=== PATIENT | female | born 2000 | race Caucasian/White ===

== ENCOUNTER 2022-07-27 09:19 | Outpatient (CLI) | payer BC, MEDICAID ==
[~2022-07-27] VITALS: Ht 162.6 cm; Wt 104.0 kg
[2022-07-27 10:02] VITALS: BP 118/58
[2022-07-27] MEDS ORDERED: PNV-9 PO (10:07)
[2022-07-27 10:34] LABS: BILIRUBIN,URINE NEGATIVE (NEGATIVE); CLARITY,URINE CLEAR; COLOR,URINE YELLOW; GLUCOSE, URINE (UA) NEGATIVE (NEGATIVE); KETONES,URINE NEGATIVE (NEGATIVE); LEUKOCYTE ESTERASE ,URINE NEGATIVE (NEGATIVE); NITRITE,URINE NEGATIVE (NEGATIVE); PROTEIN,URINE NEGATIVE (NEGATIVE)
[2022-07-27 10:43] LABS: WBC,URINE 0-2 /HPF
[2022-07-27 10:44] LABS: BACTERIA,URINE NEGATIVE /HPF; SQUAMOUS EPITHELIAL CELL,UR 0-2 /HPF
[2022-07-27 11:00] VITALS: BP 118/58
--- NOTE | 2022-07-28 07:54 | Physician Query-Final Dx ---
Clinic Account Progress/Dx Physician Query: Please give diagnosis Please include # weeks gestation Date of Service Jul 27, 2022 at 09:19 LUIS A,JulJul 28, 2022 07:54
== END 2022-07-27 11:05 | disposition home or self-care (01) ==
LOC: LDRP 09:19 → WSo 09:19
PROVIDERS: ATTEND Family Medicine
DX: O26.893 Other specified pregnancy related conditions, third trimester (principal); R10.9 Unspecified abdominal pain; Z3A.36 36 weeks gestation of pregnancy
CPT/HCPCS: 81000; G0463; 99213

== ENCOUNTER 2022-08-25 20:35 | Inpatient (IN) | payer BC, MEDICAID ==
[~2022-08-25] VITALS: Ht 165 cm; Wt 108.4 kg
[~2022-08-25 20:35] MED LIST: PNV-9 PO
[2022-08-25] MEDS ORDERED: LACTATED RINGERS 1,000 ML IV SCH (21:15)
[2022-08-25] MEDS ORDERED: MINERAL OIL 30 ML UDC TOP PRN (21:15)
[2022-08-25] MEDS ORDERED: D5 LR IV SOLUTION 1,000 ML IV ONE (21:21)
[2022-08-25] MEDS: D5 LR IV SOLUTION 1,000 ML IV SCH (21:28)
[2022-08-25 21:32] LABS: BILIRUBIN,URINE NEGATIVE (NEGATIVE); CLARITY,URINE CLEAR; COLOR,URINE YELLOW; GLUCOSE, URINE (UA) NEGATIVE (NEGATIVE); KETONES,URINE NEGATIVE (NEGATIVE); LEUKOCYTE ESTERASE ,URINE NEGATIVE (NEGATIVE); NITRITE,URINE NEGATIVE (NEGATIVE); PH,URINE 6.5 (5-9); PROTEIN,URINE NEGATIVE (NEGATIVE)
[2022-08-25 21:33] LABS: BASOPHILS % (AUTO) 0 % (0-10); EOSINOPHILS # (AUTO) 0.2 10^3/uL (0.0-0.3); EOSINOPHILS % (AUTO) 2 % (0-10); HEMATOCRIT 36 % (35-52); HEMOGLOBIN 11.7 g/dL (11.5-16.0); LYMPHOCYTES # (AUTO) 1.7 10^3/uL (1.0-4.0); LYMPHOCYTES % (AUTO) 16 % (12-44); MEAN CORPUSCULAR HEMOGLOBIN 27 pg (25-34); MEAN CORPUSCULAR HGB CONC 33 g/dL (32-36); MEAN CORPUSCULAR VOLUME 82 fL (80-99); MEAN PLATELET VOLUME 9.9 fL (9.0-12.2); MONOCYTES # (AUTO) 0.6 10^3/uL (0.0-1.0); MONOCYTES % (AUTO) 6 % (0-12); NEUTROPHILS # (AUTO) 8.2 10^3/uL (1.8-7.8); NEUTROPHILS % (AUTO) 76 % (42-75); PLATELET COUNT 277 10^3/uL (130-400); WHITE BLOOD COUNT 10.8 10^3/uL (4.3-11.0)
[2022-08-25 21:43] VITALS: BP 125/75
[2022-08-25 21:47] LABS: BACTERIA,URINE FEW /HPF; RBC,URINE 0-2 /HPF; SQUAMOUS EPITHELIAL CELL,UR 25-50 /HPF
[2022-08-25] MEDS ORDERED: CATHETER FLUSH 10 ML SYR IV SCH (22:00)
[2022-08-25 22:34] VITALS: BP 120/67
[2022-08-26] VITALS (67 sets, daily range): BP systolic 111–150; BP diastolic 51–97
[2022-08-26] MEDS: D5 LR IV SOLUTION 1,000 ML IV SCH ×2 (01:50→14:53)
--- NOTE | 2022-08-26 06:49 | History & Physical-OB ---
OB - Chief Complaint & HPI Date/Time Date of Admission: Date of Admission: Aug 25, 2022 at 20:35 Date seen by a Provider: Aug 26, 2022 Time Seen by a Provider: 06:30 Chief Complaint/History OB-Reason for Admission/Chief: Induction of Labor Hx : 1 Hx Para: 0 Expected Date of Delivery: Aug 19, 2022 Gestational Age in Weeks: 40 Gestational Age in Days: 6 Indication for induction: post dates Admission Nurse Assessment Rev: Yes History of Labs GBS negative Allergies and Home Medications Allergies Coded Allergies: No Known Drug Allergies (Unverified , 07/27/22) Patient Home Medication List Home Medication List Reviewed: Yes Pnv 119/Iron Fum/Folic Acid ( 19 Tablet) 29 Mg Iron-1 Mg Tablet, 1 EACH PO DAILY, (Reported) Entered as Reported by: KATIE FLORES on 07/27/22 1007 OB - History Hx of Present Care: Yes Ultrasounds: Normal mid trimester US Obstetrical Complications: None Medical Complications: Other (elevated bp at 40w6 days) Patient Past Medical History no chronic medical problems Immunizations Influenza Vaccine Up-to-Date: No; Not Current COVID19 Vaccine Metal [employer]: [employer] OB - Admission Exam Physical Exam Vitals: Vital Signs 08/25/22 08/26/22 08/26/22 21:43 01:33 05:33 Temp 36.5 Pulse 83 Resp 18 B/P (MAP) 115/73 (87) Pulse Ox 99 O2 Delivery Non Rebreather O2 Flow Rate 15.00 HEENT: Moist Membranes Heart: Rhythm Normal Lungs: Clear Abdomen: Gravid Cervical Dilatation: 1cm Effacement: 50% Station: -3 Membranes: Intact Heart Rate: 140's Accelerations: Accelerations Present Short Term Variability: Present Residential Variability: Average (6-25) Contractions on Admission: >10 Minutes Apart Intensity: Mild Jorge Scoring Tool (Modified) Dilation (cm): 1-2cm (1) Effacement (%): 31-51% (1) Descent/Station: -3 (0) Cervix Consistency: Medium(1) Cervix Position: Middle/Mid-Position (1) Jorge Score: 4 Labs Laboratory Tests Test 08/25/22 21:18 Range/Units White Blood Count 10.8 4.3-11.0 10^3/uL Red Blood Count 4.37 3.80-5.11 10^6/uL Hemoglobin 11.7 11.5-16.0 g/dL Hematocrit 36 35-52 % Mean Corpuscular Volume 82 80-99 fL Mean Corpuscular Hemoglobin 27 25-34 pg Mean Corpuscular Hemoglobin Concent 33 32-36 g/dL Red Cell Distribution Width 14.6 H 10.0-14.5 % Platelet Count 277 130-400 10^3/uL Mean Platelet Volume 9.9 9.0-12.2 fL Immature Granulocyte % (Auto) 1 % Neutrophils (%) (Auto) 76 H 42-75 % Lymphocytes (%) (Auto) 16 12-44 % Monocytes (%) (Auto) 6 0-12 % Eosinophils (%) (Auto) 2 0-10 % Basophils (%) (Auto) 0 0-10 % Neutrophils # (Auto) 8.2 H 1.8-7.8 10^3/uL Lymphocytes # (Auto) 1.7 1.0-4.0 10^3/uL Monocytes # (Auto) 0.6 0.0-1.0 10^3/uL Eosinophils # (Auto) 0.2 0.0-0.3 10^3/uL Basophils # (Auto) 0.0 0.0-0.1 10^3/uL Immature Granulocyte # (Auto) 0.1 0.0-0.1 10^3/uL Urine Color YELLOW Urine Clarity CLEAR Urine pH 6.5 5-9 Urine Specific [place] 1.015 L 1.016-1.022 Urine Protein NEGATIVE NEGATIVE Urine Glucose (UA) NEGATIVE NEGATIVE Urine Ketones NEGATIVE NEGATIVE Urine Nitrite NEGATIVE NEGATIVE Urine Bilirubin NEGATIVE NEGATIVE Urine Urobilinogen 0.2 < = 1.0 MG/DL Urine Leukocyte Esterase NEGATIVE NEGATIVE Urine RBC (Auto) NEGATIVE NEGATIVE Urine RBC 0-2 /HPF Urine WBC 2-5 /HPF Urine Squamous Epithelial Cells 25-50 H /HPF Urine Crystals NONE /LPF Urine Bacteria FEW H /HPF Urine Casts NONE /LPF Urine Mucus MODERATE H /LPF Urine Culture Indicated NO OB - Assessment/Plan/Diagnosis Assessment Assessment: induction of labor Admission Dx 1. IUP at 40w6d gestation 2. PIH (clinic recording) but bp better inpatient Admission Status: Inpatient Order (span 2 midnights) Reason for Inpatient Admission: induction of labor Plan Plan: Induction Induction Method: per Misoprostol Protocol Other Plan -at this time patient doesn't desire epidural -will add pitocin as necessary JAYNA PERSAUD MD Aug 26, 2022 06:49
[2022-08-26] MEDS ORDERED: OXYTOCIN PRE-MIX DRIP 500 ML IV SCH ×2 (08:45→21:30)
[2022-08-26] MEDS ORDERED: BUTORPHANOL INJ 2 MG/ML (STADOL) VIAL ONE (12:38)
[2022-08-26] MEDS: BUTORPHANOL INJ 2 MG/ML (STADOL) VIAL IV PRN ×2 (12:39→14:45)
[2022-08-26] MEDS ORDERED: fentaNYL 2 mcg/ml BUPIVA 0.125 100 ML ONE (17:45)
[2022-08-26] MEDS ORDERED: fentaNYL INJ 100 MCG/2 ML AMP ONE (17:56)
[2022-08-26] MEDS ORDERED: LIDOCAINE PF 2% 5 ML (XYLOCAINE) VIAL ONE (17:56)
[2022-08-26] MEDS ORDERED: diphenhydrAMINE 50 MG/ML INJ (BENADRYL) IV PRN (19:45)
[2022-08-26] MEDS ORDERED: LACTATED RINGERS 1,000 ML IV SCH (19:45)
[2022-08-26] MEDS ORDERED: NALOXONE 0.4 MG/ML 1 ML (NARCAN) VIAL IV PRN ×3 (19:45→21:30)
[2022-08-26] MEDS ORDERED: METOCLOPRAMIDE INJ 10 MG/2 ML (REGLAN) IV PRN (19:45)
[2022-08-26] MEDS ORDERED: ONDANSETRON 4 MG/2 ML (SDV) Z0FRAN IV PRN (19:45)
[2022-08-26] MEDS ORDERED: fentaNYL 2 mcg/ml BUPIVA 0.125 100 ML EPI SCH (19:45)
[2022-08-26] MEDS ORDERED: LIDOCAINE 1% INJ 10 ML VIAL ONE (20:37)
--- NOTE | 2022-08-26 21:28 | OB Labor & Delivery Record ---
L&D History Date of Service Date of Service: Aug 26, 2022 History Expected Date of Delivery: Aug 19, 2022 Gestational Age in Weeks: 40 Hx : 1 Hx Para: 1 Complications Events: Routine care Operative Indications (Cesarea: N/A-Vaginal Delivery Intrapartal Events: None L&D Stage1 Stage One Onset of Labor - Date: Aug 26, 2022 Onset of Labor - Time: 06:37 Monitors and Tracing Monitor Mode: Internal Heart Rate: 130 Monitor Accelerations: Uniform Monitor Decelerations: None Station: 0 Fpc Variability: Average (6-10) Short Term Variability: Present Presentation: Vertex Vital Signs VS - Last 72 Hours, by Label 08/25/22 08/25/22 08/26/22 08/26/22 21:43 22:34 00:33 01:33 Temp 36.4 36.5 Pulse 84 79 80 68 Resp 18 18 18 18 B/P (MAP) 120/67 (84) 123/61 (81) 129/69 (89) Pulse Ox 99 O2 Delivery Room Air Room Air Room Air Non Rebreather O2 Flow Rate 15.00 08/26/22 08/26/22 08/26/22 08/26/22 02:33 03:34 04:32 05:33 Pulse 72 75 74 83 Resp 18 18 18 18 B/P (MAP) 125/67 (86) 133/79 (97) 113/61 (78) 115/73 (87) 08/26/22 08/26/22 08/26/22 08/26/22 06:34 07:30 07:40 08:00 Temp 36.2 Pulse 87 80 84 75 Resp 18 18 18 B/P (MAP) 131/97 (108) 117/66 (83) 129/75 (93) Pulse Ox 99 O2 Delivery Room Air Room Air Room Air 08/26/22 08/26/22 08/26/22 08/26/22 08:30 08:45 09:00 09:15 Pulse 78 74 89 86 Resp 18 18 18 18 B/P (MAP) 131/82 (98) 125/72 (89) 129/64 (85) 139/79 (99) O2 Delivery Room Air Room Air Room Air Room Air 08/26/22 08/26/22 08/26/22 08/26/22 09:30 09:45 10:00 10:15 Pulse 91 98 82 75 Resp 18 18 18 18 B/P (MAP) 130/80 (97) 131/82 (98) 131/80 (97) 139/83 (101) O2 Delivery Room Air Room Air Room Air Room Air 08/26/22 08/26/22 08/26/22 08/26/22 10:30 10:45 11:00 11:15 Temp 36.2 Pulse 75 82 71 78 Resp 18 18 18 18 B/P (MAP) 129/77 (94) 131/76 (94) 131/75 (93) 132/81 (98) O2 Delivery Room Air Room Air Room Air Room Air 08/26/22 08/26/22 08/26/22 08/26/22 11:30 11:45 12:00 12:15 Temp 36.5 Pulse 90 85 84 92 Resp 18 18 18 18 B/P (MAP) 133/81 (98) 132/82 (99) 131/64 (86) 138/92 (107) O2 Delivery Room Air Room Air Room Air Room Air 08/26/22 08/26/22 08/26/22 08/26/22 12:30 12:45 13:00 13:15 Pulse 82 67 68 75 Resp 18 18 18 18 B/P (MAP) 134/73 (93) 128/61 (83) 132/66 (88) 127/67 (87) O2 Delivery Room Air Room Air Room Air Room Air 08/26/22 08/26/22 08/26/22 08/26/22 13:30 13:45 14:00 14:15 Pulse 75 76 82 68 Resp 18 18 18 18 B/P (MAP) 125/67 (86) 133/75 (94) 138/65 (89) 140/72 (94) O2 Delivery Room Air Room Air Room Air Room Air 08/26/22 08/26/22 08/26/22 08/26/22 14:25 14:30 14:45 14:47 Temp 37.0 Pulse 83 77 Resp 18 18 B/P (MAP) 139/80 (99) 128/72 (90) O2 Delivery Room Air Room Air Room Air O2 Flow Rate 0.00 08/26/22 08/26/22 08/26/22 08/26/22 15:00 15:15 15:30 15:45 Pulse 80 70 71 73 Resp 18 18 18 18 B/P (MAP) 141/77 (98) 146/73 (97) 149/77 (101) 149/77 (101) O2 Delivery Room Air Room Air Room Air Room Air 08/26/22 08/26/22 08/26/22 08/26/22 16:00 16:15 16:30 16:45 Temp 37.1 Pulse 74 74 78 Resp 18 18 18 18 B/P (MAP) 138/65 (89) 138/65 (89) 135/70 (91) 135/75 (95) O2 Delivery Room Air Room Air Room Air Room Air 08/26/22 08/26/22 08/26/22 08/26/22 17:00 17:15 17:30 17:45 Pulse 102 102 Resp 20 20 20 B/P (MAP) 133/86 (102) 133/86 (102) O2 Delivery Room Air Room Air Room Air Room Air 08/26/22 08/26/22 08/26/22 08/26/22 18:00 18:05 18:10 18:15 Temp 36.8 Pulse 97 82 75 Resp 20 18 18 20 B/P (MAP) 130/88 (102) 133/92 (106) 131/71 (91) Pulse Ox 100 98 99 O2 Delivery Room Air Room Air Room Air Room Air 08/26/22 08/26/22 08/26/22 08/26/22 18:20 18:25 18:30 18:35 Pulse 81 85 85 90 Resp 18 18 20 18 B/P (MAP) 129/72 (91) 121/63 (82) 124/70 (88) 128/73 (91) Pulse Ox 100 100 100 100 O2 Delivery Room Air Room Air Room Air Room Air 08/26/22 08/26/22 08/26/22 08/26/22 18:40 18:45 18:50 18:55 Pulse 84 85 77 81 Resp 18 20 18 18 B/P (MAP) 127/75 (92) 121/70 (87) 127/73 (91) 132/72 (92) Pulse Ox 100 100 100 100 O2 Delivery Room Air Room Air Room Air Room Air 08/26/22 19:00 Pulse 82 Resp 18 B/P (MAP) 137/77 (97) Pulse Ox 100 O2 Delivery Room Air Signs of Distress by FHT Signs of Distress no Rupture of Membranes Spontaneous Ruture of Membrane: No Amniotic Membrane Rupture Time: 0637 Amniotic Membrane Fluid Desc.: Clear Induction/Anesthesia Epidural Cath Placement - Time: 1807 L&D Stage2 Stage Two Stage II Date: Aug 26, 2022 Stage II Time: 20:43 Monitors and Tracing Monitor Mode: Internal Heart Rate: 130 Monitor Accelerations: Uniform Monitor Decelerations: None Humane Agent Variability: Average (6-10) Short Term Variability: Present Position: Left Occiput Anterior Presentation: Vertex Signs of Distress by FHT Signs of Distress no Cord Descript/Complications Cord Vessel Description: 3 Vessels Delivery Type Infant Delivery Method: Spontaneous Vaginal Anterior Shoulder: Left Episiotomy/Perineal Laceration Laceraction(s)/Extensions: Yes Episiotomy Description: Midline Sutures Used: Vicryl Condition of Infant Delivery 1 minute Comment: 8 5 minute Comment: 9 Condition of Infant Condition of Infant: Living Exam: No Observed Abnormalities Resuscitation Resuscitation: N/A - Spontaneous Resp L&D Stage3 Stage Three Stage III Date: Aug 26, 2022 Stage III Time: 20:48 Pictocin Pitocin Administration mu/min: 18 Pitocin ml/hr: 18 Pitocin Administration Comment: pitocin increased Placenta Delivery Placenta Delivery: Spontaneous Delivery Summary Summary Estimated blood loss (mL): 400 Condition of Delivery Examined: Cervix Examined Post Hemorrhage: No Intervention Required uterine massage JAYNA PERSAUD MD Aug 26, 2022 21:28
[2022-08-26] MEDS ORDERED: TETANUS,DIPTH,PERTUSS P/F (BOOSTRIX) 0.5 ML VIAL IM ONE (21:30)
[2022-08-26] MEDS ORDERED: WITCH HAZEL(TUCKS) 40 EA JAR TOP PRN (21:30)
[2022-08-26] MEDS ORDERED: BENZOCAINE/MENTHOL (DERMOPLAST) 56 ML CAN TP PRN (21:30)
[2022-08-26] MEDS ORDERED: MEASLES,MUMPS,RUBELLA 1 EA INJ SQ ONE (21:30)
[2022-08-26] MEDS ORDERED: CATHETER FLUSH 10 ML SYR IV SCH (22:00)
[2022-08-27 00:30] VITALS: BP 111/64
[2022-08-27 04:10] VITALS: BP 98/52
[2022-08-27] MEDS: IBUPROFEN 600 MG (MOTRIN) TAB PO SCH ×5 (04:11→22:56)
[2022-08-27] MEDS: ACETAMINOPHEN 500 MG TAB (TYLENOL) PO SCH ×3 (04:11→10:04)
[2022-08-27 05:42] LABS: BASOPHILS % (AUTO) 0 % (0-10); EOSINOPHILS % (AUTO) 0 % (0-10); HEMATOCRIT 25 % (35-52); HEMOGLOBIN 8.1 g/dL (11.5-16.0); LYMPHOCYTES # (AUTO) 1.7 10^3/uL (1.0-4.0); LYMPHOCYTES % (AUTO) 11 % (12-44); MEAN CORPUSCULAR HEMOGLOBIN 27 pg (25-34); MEAN CORPUSCULAR HGB CONC 33 g/dL (32-36); MEAN CORPUSCULAR VOLUME 83 fL (80-99); MEAN PLATELET VOLUME 10.5 fL (9.0-12.2); MONOCYTES # (AUTO) 0.8 10^3/uL (0.0-1.0); MONOCYTES % (AUTO) 5 % (0-12); NEUTROPHILS # (AUTO) 12.9 10^3/uL (1.8-7.8); NEUTROPHILS % (AUTO) 83 % (42-75); PLATELET COUNT 233 10^3/uL (130-400); WHITE BLOOD COUNT 15.6 10^3/uL (4.3-11.0)
--- NOTE | 2022-08-27 07:08 | Progress Note ---
Subjective Subjective/Events-last exam No current complaints. Objective Exam Last Set of Vital Signs Vital Signs Date Time Temp Pulse Resp B/P (MAP) Pulse Ox O2 Delivery O2 Flow Rate FiO2 08/27/22 04:10 37.0 111 18 98/52 (67) 99 Room Air 08/26/22 20:30 10.00 Capillary Refill : Less Than 3 Seconds I&O Intake and Output 08/27/22 00:00 Intake Total 3950 ml Balance 3950 ml Intake IV Total 3950 ml Blood Loss Quantification Method 400 ml General: No Acute Distress Lungs: Clear to Auscultation Heart: Regular Rate Abdomen: Soft (with uterus firm) Results/Procedures Lab Laboratory Tests 08/27/22 04:48: White Blood Count 15.6H, Red Blood Count 3.01L, Hemoglobin 8.1#L, Hematocrit 25L , Mean Corpuscular Volume 83, Mean Corpuscular Hemoglobin 27, Mean Corpuscular Hemoglobin Concent 33, Red Cell Distribution Width 14.5, Platelet Count 233, Mean Platelet Volume 10.5, Immature Granulocyte % (Auto) 1, Neutrophils (%) (Auto) 83H, Lymphocytes (%) (Auto) 11L, Monocytes (%) (Auto) 5, Eosinophils (%) (Auto) 0, Basophils (%) (Auto) 0, Neutrophils # (Auto) 12.9H, Lymphocytes # (Auto) 1.7, Monocytes # (Auto) 0.8, Eosinophils # (Auto) 0.0, Basophils # (Auto) 0.0, Immature Granulocyte # (Auto) 0.1 Assessment/Plan Assessment/Plan Admission Dx 1. S/P day 1 -routine PP care orders 2. Anemia following delivery- stable -iron po Admission Status: Inpatient Order (span 2 midnights) JAYNA PERSAUD MD Aug 27, 2022 07:08
[2022-08-27 08:00] VITALS: BP 90/52
[2022-08-27] MEDS: DOCUSATE SODIUM 100 MG (COLACE) CAP PO SCH ×2 (10:04→19:44)
--- NOTE | 2022-08-27 14:02 | Anesthesia-Regional Post-Op ---
Regional Patient Condition Mental Status: Alert, Oriented x3 Circulation: Same as Pre-Op Headache: Absent Sensation: Full Recovery Motor Block: Absent Post Op Complications Complications None Follow Up Care/Instructions Patient Instructions None needed. Anesthesia/Patient Condition Patient is doing well, no complaints, stable vital signs, no apparent adverse anesthesia problems. No complications reported per nursing. NATHAN HANCOCK CRNA Aug 27, 2022 14:02
[2022-08-27 16:51] VITALS: BP 115/63
[2022-08-27 19:40] VITALS: BP 123/69
[2022-08-27 22:55] VITALS: BP 130/70
[2022-08-28 04:55] VITALS: BP 103/54
[2022-08-28] MEDS: IBUPROFEN 600 MG (MOTRIN) TAB PO SCH ×2 (04:59→11:26)
[2022-08-28 08:21] VITALS: BP 102/59
[2022-08-28] MEDS: DOCUSATE SODIUM 100 MG (COLACE) CAP PO SCH (08:21)
--- NOTE | 2022-08-28 08:49 | Discharge Inst-Women's Service ---
Discharge Inst-Women's Serv Depart Medication/Instructions New, Converted or Re-Newed RX: Other (May take ibuprofen [id number] 200 mg tablets 2 or 3 every 6 hours for cramps or pain) Problems Reviewed?: Yes Consults/Follow Up Additional Follow Up: Yes (Dr Persaud in 6 weeks) Activity Driving Instructions: No Driving for 1 Week Nothing Inside Vagina: No [place] (For 6 weeks) Diet Discharge Diet: Regular Diet Return to The Hospital For: As below Symptoms to Report to : Bleeding Excessive, Fever Over 101 Degrees F, Vag inal Discharge Foul For Any Problems or Questions: Contact Your Physician JAYNA PERSAUD MD Aug 28, 2022 08:49
--- NOTE | 2022-08-28 08:52 | Discharge Summary ---
Diagnosis/Chief Complaint Date of Admission Aug 25, 2022 at 20:35 Date of Discharge August 28, 2022 Admission Diagnosis Admission Diagnosis 1. Intrauterine at 40 weeks 5 days gestation Discharge Diagnosis 1. Intrauterine at 40 weeks 5 days gestation Chief Complaint/HPI Chief Complaint/HPI 22-year-old 1 now T1 L1 who initially presented to labor and delivery for induction of labor at 40 weeks 5 days gestation. Her GBS status was noted to be negative. Her care was essentially unremarkable Discharge Summary-OBS Procedures 1. epidural per anesthesia 2. Spontaneous vaginal delivery 3. Repair of midline episiotomy Discharge Physical Examination Allergies: Coded Allergies: No Known Drug Allergies (Unverified , 07/27/22) Vitals & I&Os Vital Sign - Last 12Hours Date Time Temp Pulse Resp B/P (MAP) Pulse Ox O2 Delivery O2 Flow Rate FiO2 08/28/22 04:55 36.0 96 16 103/54 (70) 98 Room Air 08/26/22 20:30 10.00 General Appearance: No Acute Distress Respiratory: Clear to Auscultation Cardiovascular: Regular Rate Abdominal: Soft (With uterus firm) Psych/Mental Status: Mental Status NL Hospital Course Was the Problem List Reviewed?: Yes Discharge Instructions to patient/family Please see electronic discharge instructions given to patient. Discharge Medications Reviewed and agree with Discharge Medication list on patient's Discharge Instruction sheet JAYNA PERSAUD MD Aug 28, 2022 08:52
[2022-08-28] MEDS ORDERED: MEASLES,MUMPS,RUBELLA 1 EA INJ ONE (09:39)
[2022-08-28] MEDS ORDERED: diphenhydrAMINE 25 MG TAB (BENADRYL) PO ONE ×2 (10:30→10:34)
[2022-08-28 12:30] VITALS: BP 102/59
--- NOTE | 2022-08-30 13:59 | Physician Query Clarification ---
PQ-Further Specificity Admission/Discharge Admission Date: Aug 25, 2022 at 20:35 Discharge Date: Aug 28, 2022 at 12:30 Dr. Persaud, The medical record reflects the following clinical scenario: History/Risk Factors: post-term Clinical Findings: Hgb 11.7 on admit down to 8.1 post delivery Treatment: Iron PO Question: Can you further specify the type of anemia per the clinical indicators above? Please document a response in the Progress Notes or Discharge Summary. 1. anemia due to acute blood loss 2. anemia not further specified 3. Other, with explanation of the clinical findings. 4. Clinically undetermined, no explanation for the clinical findings. PHYSICIAN RESPONSE Can you specify per above: 1 In responding to this query, please exercise your independent professional judgment. The purpose of this communication is to more accurately reflect the complexity of your patients condition. The fact that a question is asked does not imply that any particular answer is desired or expected. Thank you for your timely response to this clarification. Requestors name: Filipe THIS PHYSICIAN QUERY FORM IS A PERMANENT PART OF THE MEDICAL RECORD FILIPE MATT Aug 30, 2022 13:59 JAYNA PERSAUD MD Aug 31, 2022 07:35
== END 2022-08-28 12:30 | disposition home or self-care (01) | DRG 806 ==
LOC: LDRP 20:35
PROVIDERS: ADMIT Family Medicine; ATTEND Family Medicine
PROC: 3E0DXGC Introduction of Other Therapeutic Substance into Mouth and Pharynx, External Approach (ICD-10-PCS; 2022-08-25)
PROC: 10E0XZZ Delivery of Products of Conception, External Approach (ICD-10-PCS; principal; 2022-08-26)
PROC: 0W8NXZZ Division of Female Perineum, External Approach (ICD-10-PCS; 2022-08-26)
DX: O48.0 Post-term pregnancy (principal); D62 Acute posthemorrhagic anemia; Z37.0 Single live birth; O90.81 Anemia of the puerperium; Z23 Encounter for immunization
CPT/HCPCS: 36415; 81000; 85025; 86780; 86850; 86900; 86901; 90707